=== PATIENT | female | born 1985 | race Two or more races ===

== ENCOUNTER 2024-04-23 10:09 | Emergency (ER) | payer OTHER ==
[~2024-04-23] VITALS: Ht 154.9 cm; Wt 89.8 kg
[2024-04-23] MEDS ORDERED: KETOROLAC TROMETHAMINE 30 MG VIAL IM ONE (11:00)
[2024-04-23] MEDS ORDERED: KETOROLAC TROMETHAMINE 30 MG VIAL ONE (11:11)
== END 2024-04-23 12:29 | disposition home or self-care (01) ==
LOC: ER 10:10
DX: S93.492A Sprain of other ligament of left ankle, initial encounter (principal); W10.8XXA Fall (on) (from) other stairs and steps, initial encounter; Y93.89 Activity, other specified; Y92.098 Other place in other non-institutional residence as the place of occurrence of the external cause; Y99.8 Other external cause status

== ENCOUNTER 2024-12-11 12:49 | Inpatient (IN) | payer OTHER ==
[~2024-12-11] VITALS: Ht 152.4 cm; Wt 91.2 kg
[2024-12-11 13:50] LABS: RH POSITIVE
[2024-12-15] MEDS ORDERED: POVIDONE-IODINE 118 ML BOTT TOP ONE (07:31)
[2024-12-15] MEDS ORDERED: CEFAZOLIN SODIUM 1,000 MG VIAL ONE (07:31)
[2024-12-15] MEDS ORDERED: SUGAMMADEX SODIUM 200 MG/2 ML VIAL IV ONE (09:07)
[2024-12-15] MEDS ORDERED: MORPHINE SULFATE 4 MG/ML CARTRIDGE IV PRN (10:30)
[2024-12-15] MEDS ORDERED: MORPHINE SULFATE 4 MG/ML VIAL IV ONE ×2 (10:55→11:55)
[2024-12-15] MEDS ORDERED: CEFAZOLIN SODIUM 1,000 MG VIAL IV SCH (14:00)
[2024-12-15] MEDS ORDERED: PROMETHAZINE HCL 50 MG/ML AMPUL IM PRN (14:30)
[2024-12-15 16:41] VITALS: BP 145/85
[2024-12-15 20:32] VITALS: BP 147/82
[2024-12-16] VITALS: BP 128/78
[2024-12-16 01:37] LABS: HEMATOCRIT 28.9 % (36.0-45.00); HEMOGLOBIN 9.1 g/dL (12.0-15.00); MEAN CORPUSCULAR HEMOGLOBIN 20.5 pg (27.00-32.0); MEAN CORPUSCULAR HGB CONC 31.4 g/dl (32.0-36.0); PLATELET COUNT 305 K/uL (150-450); RED BLOOD COUNT 4.43 M/uL (4.00-6.00); RED CELL DISTRIBUTION WIDTH 19.2 % (11.5-14.5)
[2024-12-16 01:46] LABS: MEAN CELL VOLUME 65.3 fL (80.00-100.00)
[2024-12-16 08:57] VITALS: BP 140/88
[2024-12-16] MEDS ORDERED: SIMETHICONE 125 MG CAPSULE PO SCH (09:00)
[2024-12-16] MEDS ORDERED: SOD FERRIC GLUC COMPLX/SUCROSE 62.5 MG in 0.9 % SODIUM CHLORIDE 50 ML IV SCH (09:00)
[2024-12-16] MEDS ORDERED: DOCUSATE SODIUM 100MG CAP PO SCH (09:00)
[2024-12-16] MEDS ORDERED: IBUprofen 800 MG TABLET PO SCH (09:00)
[2024-12-16] MEDS ORDERED: FAMOTIDINE/PF 20 MG/2 ML VIAL IV ONE (09:30)
[2024-12-16] MEDS ORDERED: CELECOXIB 200 MG CAPSULE PO SCH (13:00)
[2024-12-16 16:00] VITALS: BP 107/68
[2024-12-17 00:38] VITALS: BP 113/72
[2024-12-17 08:00] VITALS: BP 139/88
[2024-12-17 16:00] VITALS: BP 111/73
[2024-12-18] VITALS: BP 107/68
[2024-12-18 07:20] VITALS: BP 123/73
[2024-12-18] MEDS ORDERED: IBUPROFEN800 MG PO (07:34)
== END 2024-12-18 09:26 | disposition home or self-care (01) | DRG 743 ==
LOC: O/R 12-15 04:58 → OB/GYN 12-15 04:58 → SURH 12-15 07:00 → OB/GYN 12-15 11:20
PROVIDERS: ADMIT Specialist; ATTEND Specialist
PROC: 0UT90ZZ Resection of Uterus, Open Approach (ICD-10-PCS; principal; 2024-12-15 07:00)
DX: D25.1 Intramural leiomyoma of uterus (principal); D25.2 Subserosal leiomyoma of uterus; N80.03 Adenomyosis of the uterus; D25.0 Submucous leiomyoma of uterus